=== PATIENT | male | born 1960 | race African-American/Black ===

== ENCOUNTER 2017-06-11 11:22 | Emergency (ER) | payer OTHER ==
[~2017-06-11] VITALS: Ht 180.3 cm; Wt 82.0 kg
[~2017-06-11 11:22] MED LIST: IMIT50 PO; PRED5DRO7 LEFTEYE; TIMO15DR12 LEFTEYE
[2017-06-11] MEDS ORDERED: SODIUM CHLORIDE 0.9% 1,000 ML IV ONE (11:44)
[2017-06-11] MEDS ORDERED: MORPHINE SULFATE 4 MG/ML CPJ (NOT FOR IM USE) IV ONE (11:45)
[2017-06-11] MEDS ORDERED: ONDANSETRON HCL 4MG/2ML VIAL IV ONE (11:45)
[2017-06-11 12:49] LABS: BASOPHILS % 0.7 % (0.0-2.0); EOSINOPHILS % 3.6 % (0.0-5.0); HEMATOCRIT. 42.7 % (42.0-52.0); HEMOGLOBIN. 14.5 g/dL (14.0-18.0); MEAN CORPUSCULAR HEMOGLOBIN 33.8 pg (28.0-32.0); MEAN CORPUSCULAR VOLUME 99.6 fL (80.0-94.0); MEAN PLATELET VOLUME 8.7 fl (7.4-10.4); MONOCYTES % 6.6 % (2.0-8.0); NEUTROPHILS % 63.1 % (40.0-76.0); PLATELET 176 x1000/uL (130-400); RED BLOOD CELL COUNT 4.28 mill/uL (4.7-6.1); RED CELL DISTRIBUTION WIDTH 13.2 % (11.6-14.6)
[2017-06-11 13:00] LABS: CHLORIDE 105 mEq/L (98-107)
[2017-06-11] MEDS ORDERED: TIMOLOL MALEATE 0.5% OPHTH DROPS 5ML LEFTEYE SCH (13:15)
[2017-06-11] MEDS ORDERED: ACETAZOLAMIDE SODIUM 500MG/VIAL IV ONE (13:45)
[2017-06-11 14:00] VITALS: BP 144/80
== END 2017-06-11 14:52 | disposition home or self-care (01) ==
LOC: ER 11:38
DX: R51 Headache (principal); H57.12 Ocular pain, left eye; H40.9 Unspecified glaucoma; I10 Essential (primary) hypertension; F12.10 Cannabis abuse, uncomplicated; D72.819 Decreased white blood cell count, unspecified; Z85.9 Personal history of malignant neoplasm, unspecified; Z98.890 Other specified postprocedural states
CPT/HCPCS: 36415; 70450; 80048; 85025; 96361; 96374; 96375; 99285; J1120; J2270; J2405; J7030; Z7610

== ENCOUNTER 2023-09-21 22:36 | Emergency (ER) | payer OTHER ==
[~2023-09-21] VITALS: Ht 193 cm; Wt 80.0 kg
[2023-09-21 22:46] VITALS: BP 112/66; PULSE 65; RESP 18; TEMP 98.5; O2SAT 100
[2023-09-21 23:42] LABS: BASOPHILS % 0.6 % (0.0-2.0); DIFFERENTIAL COMMENT 0; EOSINOPHILS % 4.6 % (0.0-5.0); HEMATOCRIT. 43.1 % (42.0-52.0); HEMOGLOBIN. 14.4 g/dL (14.0-18.0); LYMPHOCYTES % 12.3 % (20.0-50.0); MEAN CORPUSCULAR HEMOGLOBIN 33.8 pg (28.0-32.0); MEAN CORPUSCULAR HGB CONC 33.5 g/dL (31.0-37.0); MEAN PLATELET VOLUME 8.8 fl (7.4-10.4); MONOCYTES % 7.5 % (2.0-8.0); PLATELET 209 x1000/uL (130-400); RED BLOOD CELL COUNT 4.27 mill/uL (4.7-6.1); RED CELL DISTRIBUTION WIDTH 13.2 % (11.6-14.6); WHITE BLOOD COUNT 9.3 x1000/uL (4.5-11.0)
[2023-09-21 23:50] LABS: CHLORIDE 109 mEq/L (98-107); POTASSIUM 3.7 mEq/L (3.5-5.1); SODIUM 138 mEq/L (136-145)
[2023-09-21 23:51] LABS: CARBON DIOXIDE 27 mEq/L (21-32)
[2023-09-21 23:52] LABS: CALCIUM 9.2 mg/dL (8.7-10.4)
[2023-09-21 23:56] LABS: CREATININE 1.1 mg/dL (0.6-1.3); GLUCOSE 114 mg/dL (70-105); UREA NITROGEN BLOOD 16 mg/dL (9-23)
[2023-09-21 23:57] LABS: TROPONIN I HIGH SENSITIVITY 4 ng/L (3.0-53)
== END 2023-09-22 01:04 | disposition left against medical advice (07) ==
LOC: ER 22:36
DX: I95.9 Hypotension, unspecified (principal); I10 Essential (primary) hypertension; F12.10 Cannabis abuse, uncomplicated; Z85.9 Personal history of malignant neoplasm, unspecified
CPT/HCPCS: 36415; 71045; 80048; 83605; 84484; 85025; 93005; 99285